=== PATIENT | female | born 1980 | race Caucasian/White ===

== ENCOUNTER 2020-02-03 14:38 | Outpatient (CLI) | payer OTHER, BC | END 2020-02-03 14:39 | disposition home or self-care (01) | LOC: DTY/OP 14:38 | PROVIDERS: ATTEND Surgery | DX: E66.01 Morbid (severe) obesity due to excess calories (principal) | CPT/HCPCS: 97802 ==

== ENCOUNTER 2020-03-02 12:52 | Outpatient (CLI) | payer OTHER, BC | END 2020-03-02 12:53 | disposition home or self-care (01) | LOC: DTY/OP 12:52 | PROVIDERS: ATTEND Surgery | DX: E66.01 Morbid (severe) obesity due to excess calories (principal) | CPT/HCPCS: 97802 ==

== ENCOUNTER 2020-03-30 13:35 | Outpatient (CLI) | payer OTHER, BC | END 2020-03-30 13:36 | disposition home or self-care (01) | LOC: DTY/OP 13:35 | PROVIDERS: ATTEND Surgery | DX: E66.01 Morbid (severe) obesity due to excess calories (principal) | CPT/HCPCS: 97802 ==

== ENCOUNTER 2020-05-02 15:15 | Inpatient (IN) | payer BC, OTHER ==
[2020-05-04 11:42] VITALS: BMI 34.6
[2020-05-07] MEDS ORDERED: Heparin 5,000 UNITS/ML VIAL ONE (10:01)
--- NOTE | 2020-05-07 10:11 | RAD ---
RADIOGRAPH CHEST 2 VIEWS: DATE: 05/07/2020 HISTORY: 39-year-old female for preoperative clearance FINDINGS: The lungs are clear. The cardiomediastinal silhouette and hilar shadows appear normal. There is no pl eural effusion or pneumothorax. No osseous abnormality is identified. IMPRESSION: Normal
[2020-05-07] MEDS ORDERED: Bupivacaine/Epinephrine 0.25% 30 ML VIAL ONE (11:02)
[2020-05-07] MEDS ORDERED: Fentanyl 100 MCG/2 ML VIAL ONE ×3 (11:17→14:39)
[2020-05-07] MEDS ORDERED: Midazolam HCl 2 mg/2 ml Vial ONE (11:17)
[2020-05-07] MEDS ORDERED: Rocuronium Bromide 10 MG/ML (10ML VIAL) ONE (11:25)
[2020-05-07] MEDS ORDERED: Esmolol 100 MG/10 ML VIAL ONE (11:25)
[2020-05-07] MEDS ORDERED: Lidocaine 1% PF 5 ML VIAL ONE (11:25)
[2020-05-07] MEDS ORDERED: EPHEDRINE 25 MG/5 ML SYRINGE ONE (11:25)
[2020-05-07] MEDS ORDERED: Ondansetron PF 4 MG/2 ML Vial ONE (11:25)
[2020-05-07] MEDS ORDERED: Dexamethasone 20 MG/5 ML VIAL ONE (11:25)
[2020-05-07] MEDS ORDERED: Glycopyrrolate 0.2 MG/ML 5 ML SYRINGE ONE (11:25)
[2020-05-07] MEDS ORDERED: PROPOFOL 200 MG/20 ML VIAL ONE (11:25)
[2020-05-07] MEDS ORDERED: Promethazine HCl 25 MG/ML VIAL IM PRN ×2 (12:47→13:25)
[2020-05-07] MEDS ORDERED: Ondansetron HCl/PF 4 MG/2 ML Vial IVP PRN (12:47)
[2020-05-07] MEDS ORDERED: Promethazine HCl 25 MG/ML VIAL SLOW IVP PRN (12:47)
[2020-05-07] MEDS ORDERED: SUGAMMADEX SODIUM 200 MG/2 ML VIAL ONE (13:18)
[2020-05-07] MEDS ORDERED: Dextrose 50% Abboject 50 ML SYRINGE SLOW IVP PRN (13:25)
[2020-05-07] MEDS ORDERED: Dextrose 5% in Water 1,000 ML IV PRN (13:25)
[2020-05-07] MEDS ORDERED: hydrALAZINE 20 MG/ML VIAL SLOW IVP PRN (13:25)
[2020-05-07] MEDS ORDERED: Cyclobenzaprine 10 MG TAB PO PRN (13:25)
[2020-05-07] MEDS ORDERED: Hydrocodone-Acetamin 15 ML UDCUP PO PRN ×2 (13:25→13:38)
[2020-05-07] MEDS ORDERED: Non-Formulary Item 1 EACH (Albuterol Sulfate [Albuterol Sulfate Hfa] 8.5 GM Hfa.Aer.Ad) IH PRN (13:25)
[2020-05-07] MEDS ORDERED: Ondansetron PF 4 MG/2 ML Vial IVP PRN (13:25)
[2020-05-07] MEDS ORDERED: diphenhydrAMINE 50 MG/ML VIAL IVP PRN (13:25)
[2020-05-07] MEDS ORDERED: Zolpidem Tartrate 5 MG TAB PO PRN ×2 (13:30→13:33)
[2020-05-07] MEDS ORDERED: Sodium Chloride 0.9% (PF) 10 ML VIAL FS PRN (13:30)
[2020-05-07] MEDS ORDERED: Naloxone HCl 0.4 mg/ml Vial IV PRN (13:33)
[2020-05-07] MEDS ORDERED: fentaNYL Citrate/PF 2,000 MCG in Sodium Chloride 0.9% 60 ML IV PRN (13:33)
[2020-05-07] MEDS ORDERED: diphenhydrAMINE 50 MG/ML VIAL IM PRN (13:33)
[2020-05-07] MEDS ORDERED: Communication Order-Pharmacy FS SCH (13:45)
--- NOTE | 2020-05-07 14:54 | OP ---
DATE OF PROCEDURE: 05/07/2020 PREOPERATIVE DIAGNOSES: 1. Morbid obesity, body mass index of 35. 2. Hypertension. 3. Dyslipidemia. POSTOPERATIVE DIAGNOSES: 1. Morbid obesity, body mass index of 35. 2. Hypertension. 3. Dyslipidemia. 4. Paraesophageal hiatal hernia. PROCEDURES PERFORMED: 1. Laparoscopic sleeve gastrectomy with Ethicon staple line reinforcements and 38-[place] bougie. 2. Laparoscopic paraesophageal hiatal hernia repair without fundoplication or mesh. ANESTHESIA: General. ESTIMATED BLOOD LOSS: Minimal. COMPLICATIONS: None. FINDINGS: Hiatal hernia. TECHNIQUE: The patient was taken to the operating room and laid supine on the operating table. After general anesthetic was obtained, bilateral arms and legs were double strapped to bariatric table. OG tube was used to decompress the stomach. Left subcostal 5-mm Optiview trocar placed in usual fashion and high-flow pneumoperitoneum was obtained. Left and right abdominal 12 mm ports as well as a right subcostal 5-mm port were placed under direct visualization. A 5-mm incision was made at the xiphoid, and Papo was used to raise the liver off the GE junction. Short gastrics were taken down from midbody of the stomach to the left ryan of diaphragm using LigaSure. Left ryan, posterior fundus, angle of His were completely dissected, revealing a hiatal hernia. Circumferential dissection of the esophagus was performed. The gastrohepatic ligament was opened allowing the dissection on the right side. OG tube was removed, and a 38 bougie was brought in its tip left in the antrum of the stomach. Multiple loads of [place] stapling device was used to form the sleeve all with Ethicon staple line reinforcements. The first was fired up at the distance of 6 cm proximal to the pylorus angled up towards the incisura. Multiple loads were then fired up along the bougie and the stomach was completely transected at the angle of His. The stomach was removed from the left abdominal incision. This fascial defect was closed using GraNee needle and 0 Vicryl tie. All port sites were infiltrated using local anesthetic. The posterior diaphragmatic defect was closed bringing the right and left crura together using Ethibond suture and the Ti-KNOT system, two sutures were used to do this. The bougie was removed, and an EGD scope was passed through the esophagus and stomach to the level of the duodenum without obstruction. There was no stricture at the incisura. There was no air leakage on the staple line. No involvement of the GE junction with the staple line. EGD scope was used to decompress the stomach, it was pulled and removed. The Papo liver retractor was removed under direct visualization without bleeding. There was no bleeding in the abdomen. All port sites were infiltrated using local anesthetic. All ports have removed under camera visualization. Pneumoperitoneum was let down. Vicryl was used to close the fascial defect from the left abdominal incision. All other incisions were irrigated. The incisions were all closed using 4-0 Monocryl and Dermabond. The patient was en route to Recovery in stable condition. All instrument counts, needle counts, and lap counts were correct. Job ID: [id number]
[2020-05-07] MEDS ORDERED: Promethazine HCl 25 MG/ML VIAL ONE (15:37)
[2020-05-07] MEDS: Gabapentin 300 MG CAP PO SCH ×2 (19:20→20:27)
[2020-05-07] MEDS: Enoxaparin Sodium 40 MG/0.4 ML SYRINGE SC SCH (20:28)
[2020-05-07] MEDS: Topiramate 25 MG TAB PO SCH (20:28)
[2020-05-07] MEDS: Ondansetron PF 4 MG/2 ML Vial IVP PRN (20:31)
[2020-05-07] MEDS: D5 1/2 NS w/20 mEq KCL 1,000 ML IV SCH (22:09)
[2020-05-07] MEDS: Promethazine HCl 25 MG/ML VIAL IM PRN (22:12)
[2020-05-08] MEDS: Promethazine HCl 25 MG/ML VIAL IM PRN ×2 (02:10→10:56)
[2020-05-08] MEDS: D5 1/2 NS w/20 mEq KCL 1,000 ML IV SCH ×4 (02:44→23:56)
[2020-05-08 05:03] LABS: #Lymphocytes 1.2 thou/uL (1.20-3.40); #Monocytes 0.8 thou/uL (0.11-0.59); #Neutrophils 8.3 thou/uL (1.40-6.50); %Basophils 0.4 % (0.0-1.0); %Eosinophils 0.1 % (0.0-10.0); %Lymphocytes 11.9 % (21.0-51.0); %Monocytes 7.4 % (0.0-10.0); %Neutrophils 80.3 % (42.0-75.0); Hemoglobin 12.6 g/dL (12.0-16.0); Mean Corpuscular HGB CONC 34.4 g/dL (32.0-36.0); Mean Corpuscular Hemoglobin 31.7 pg (27.0-31.0); Mean Corpuscular Volume 92.3 fL (78.0-98.0); Mean Platelet Volume 6.4 fL (7.4-10.4); Platelet Count 320 thou/uL (130-400); RBC Distribution Width 11.2 % (11.5-14.5); Red Blood Cell (RBC) Count 3.99 mill/uL (4.20-5.40); White Blood Cell (WBC) Count 10.4 thou/uL (4.8-10.8)
[2020-05-08 05:17] LABS: Anion Gap 12 mmol/L (10-20); BUN (Urea Nitrogen) 15 mg/dL (7.0-18.7); Calc. Creatinine Clearance 146 mL/min (70-130); Calcium 8.8 mg/dL (7.8-10.44); Carbon Dioxide 22 mmol/L (22-29); Chloride 107 mmol/L (98-107); Estimated GFR-MDRD 83; Glucose 148 mg/dL (70-105); Potassium 4.3 mmol/L (3.5-5.1); Sodium 137 mmol/L (136-145)
[2020-05-08] MEDS: Ondansetron PF 4 MG/2 ML Vial IVP PRN (06:24)
[2020-05-08] MEDS: Levothyroxine Sodium 112 MCG TAB PO SCH (06:28)
--- NOTE | 2020-05-08 07:00 | PDOC.GSPN ---
Surgery Progress Note: Subj - Subjective Narrative: Ms. Cruz is a 39-year-old female with past medical history of morbid obesity, hypertension, dyslipidemia, and a paraesophageal hiatal hernia is post op day 1 from a laparoscopic sleeve gastrectomy and paraesophageal hiatal hernia repair. Overall, she has some moderate to severe nausea and epigastric pain that radiates to her right upper quadrant. She denies reflux, vomiting, or having a bowel movement. When we talked, she only just recently had medication for nausea. We discussed the possibility of her going home, and she said she wanted to, but she wants to wait a little bit to see if her nausea is more under control. She does have some moderate pain, and she does not want the hydrocodone as she believes it made her nausea worse. Surgery Progress Note: Obj - Vital signs Vital signs: Vital Signs - Most Recent Temp Pulse Resp BP Pulse Ox 98.2 F 79 16 118/78 99 05/08/20 03:37 05/08/20 03:37 05/08/20 03:37 05/08/20 03:37 05/08/20 03:37 - Physical Exam General: moderate pain, obese Cardiovascular: regular rate and rhythm Respiratory: clear to auscultation Abdomen: soft, positive bowel sounds, appropriately tender Psychiatric: oriented to time, oriented to person, oriented to place Wound: healing well Surgery Progress Note: Results - Labs Result Diagrams: 05/08/20 04:41 05/08/20 04:41 Lab results: Laboratory Results - last 12 hr 05/08/20 05/08/20 04:41 04:41 WBC 10.4 RBC 3.99 L Hgb 12.6 Hct 36.8 MCV 92.3 MCH 31.7 H MCHC 34.4 RDW 11.2 L Plt Count 320 MPV 6.4 L Neutrophils % 80.3 H Lymphocytes % 11.9 L Monocytes % 7.4 Eosinophils % 0.1 Basophils % 0.4 Neutrophils # 8.3 H Lymphocytes # 1.2 Monocytes # 0.8 H Eosinophils # 0.0 Basophils # 0.0 Sodium 137 Potassium 4.3 Chloride 107 Carbon Dioxide 22 Anion Gap 12 BUN 15 Creatinine 0.77 Estimated GFR (MDRD) 83 Glucose 148 H Calcium 8.8 Surgery Progress Note: A/P - Problem (1) S/P laparoscopic sleeve gastrectomy Current Visit: Yes Code(s): Z98.84 - BARIATRIC SURGERY STATUS Status: Acute (2) Paraesophageal hiatal hernia Current Visit: Yes Code(s): K44.9 - DIAPHRAGMATIC HERNIA WITHOUT OBSTRUCTION OR GANGRENE Status: Acute (3) Morbid obesity Current Visit: Yes Code(s): E66.01 - MORBID (SEVERE) OBESITY DUE TO EXCESS CALORIES Status: Chronic - Plan Plan: We discussed waiting a couple of hours to see if the medication she was given adequately controls her nausea. If it does, she can go home. We also discussed giving a different medication for pain as she thinks the hydrocodone contributed to her nausea.
[2020-05-08] MEDS: Pantoprazole 40 MG VIAL IVP SCH (08:27)
[2020-05-08] MEDS: Gabapentin 300 MG CAP PO SCH ×3 (08:28→21:10)
[2020-05-08] MEDS: Topiramate 25 MG TAB PO SCH ×2 (08:28→21:08)
[2020-05-08] MEDS: diphenhydrAMINE 25 MG CAP PO PRN ×2 (08:28→13:12)
[2020-05-08] MEDS: Liothyronine Sodium 5 MCG TAB PO SCH (08:29)
--- NOTE | 2020-05-08 11:15 | PRG ---
DATE OF SERVICE: 05/08/2020 SUBJECTIVE: Postop day 1 gastric sleeve. Ms. Cruz is having some dry heaving at times. She has ambulated, but she is complaining of nausea. OBJECTIVE: VITAL SIGNS: She is afebrile. Vital signs are stable. ABDOMEN: Soft and appropriately tender. ASSESSMENT: Postoperative day 1 gastric sleeve. 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 The fentanyl could be contributing. We will hold off on hydrocodone, which causes nausea in her usually. We will try tramadol and oral Tylenol for the pain. Encouraged ambulation. Continue IV fluids. Continue liquids as tolerated. I suspect she will need to stay until tomorrow. Job ID: [id number]
[2020-05-08] MEDS: traMADol HCl 50 MG TAB PO PRN ×2 (11:32→21:10)
[2020-05-08] MEDS: diphenhydrAMINE 50 MG/ML VIAL IVP PRN (19:24)
[2020-05-08] MEDS: Enoxaparin Sodium 40 MG/0.4 ML SYRINGE SC SCH (22:11)
[2020-05-09] MEDS: Levothyroxine Sodium 112 MCG TAB PO SCH (05:53)
[2020-05-09] MEDS: diphenhydrAMINE 50 MG/ML VIAL IVP PRN (05:53)
[2020-05-09] MEDS: D5 1/2 NS w/20 mEq KCL 1,000 ML IV SCH (05:57)
[2020-05-09] MEDS: Liothyronine Sodium 5 MCG TAB PO SCH (09:32)
[2020-05-09] MEDS: Gabapentin 300 MG CAP PO SCH (09:33)
[2020-05-09] MEDS: diphenhydrAMINE 25 MG CAP PO PRN (09:33)
[2020-05-09] MEDS: Pantoprazole 40 MG VIAL IVP SCH (09:34)
[2020-05-09] MEDS: Topiramate 25 MG TAB PO SCH (09:39)
[2020-05-09 11:52] VITALS: BP 117/82; TEMP 98.6
--- NOTE | 2020-05-09 14:48 | DIS ---
DATE OF ADMISSION: 05/07/2020 DATE OF DISCHARGE: 05/09/2020 ADMIT DIAGNOSIS: Morbid obesity. DISCHARGE DIAGNOSIS: Morbid obesity. PROCEDURE: Laparoscopic sleeve gastrectomy by Dr. Nicole without complication. CONDITION ON DISCHARGE: Improved. STAFF: Dr. Nicole. HOSPITAL COURSE: On postop day 1, the patient had persistent nausea. Decision was made to keep her another night. On postop day 2, the patient was doing well. She had developed pretty severe diffuse urticaria. This already improved. No throat swelling, no difficulty breathing, and she is hemodynamically stable. She is discharged home. She will follow up with me in 2 weeks. Prescription had already sent to her pharmacy. Job ID: [id number]
== END 2020-05-09 12:45 | disposition home or self-care (01) | DRG 621 ==
LOC: SURG A 05-07 09:18 → EDSTATUS 05-07 13:52 → SURG A 05-07 19:22
PROVIDERS: ADMIT Surgery; ATTEND Surgery
PROC: 0DB64Z3 Excision of Stomach, Percutaneous Endoscopic Approach, Vertical (ICD-10-PCS; principal; 2020-05-07)
PROC: 0BQT4ZZ Repair Diaphragm, Percutaneous Endoscopic Approach (ICD-10-PCS; 2020-05-07)
DX: E66.01 Morbid (severe) obesity due to excess calories (principal); I10 Essential (primary) hypertension; M19.90 Unspecified osteoarthritis, unspecified site; F41.9 Anxiety disorder, unspecified; E11.9 Type 2 diabetes mellitus without complications; E78.5 Hyperlipidemia, unspecified; K44.9 Diaphragmatic hernia without obstruction or gangrene; Z68.35 Body mass index [BMI] 35.0-35.9, adult; Z88.2 Allergy status to sulfonamides; Z88.6 Allergy status to analgesic agent; Z88.8 Allergy status to other drugs, medicaments and biological substances; Z91.040 Latex allergy status; Z79.899 Other long term (current) drug therapy; Z90.710 Acquired absence of both cervix and uterus; Z98.890 Other specified postprocedural states
CPT/HCPCS: 36415; 71046; 80048; 85025; 88307; 88312; C9113; J0690; J1100; J1200; J1644; J1650; J2250; J2405; J2550; J2704; J3010; J3480; Q0163

== ENCOUNTER 2020-06-17 13:31 | Day surgery (SDC) | payer OTHER ==
[2020-06-17] MEDS ORDERED: Sodium Chloride 0.9% 1,000 ML IV SCH (15:00)
[2020-06-17] MEDS ORDERED: Ondansetron PF 4 MG/2 ML Vial IVP SCH (15:00)
== END 2020-06-17 17:06 | disposition home or self-care (01) ==
LOC: ONC/OP 13:31
PROVIDERS: ATTEND Surgery
DX: E86.0 Dehydration (principal); R11.0 Nausea; Z88.1 Allergy status to other antibiotic agents; Z88.2 Allergy status to sulfonamides; Z88.5 Allergy status to narcotic agent; Z91.040 Latex allergy status
CPT/HCPCS: 96365; 96375; J2405

== ENCOUNTER 2020-06-19 09:58 | Day surgery (SDC) | payer OTHER ==
[2020-06-19] MEDS ORDERED: Ondansetron PF 4 MG/2 ML Vial IVP PRN (10:06)
[2020-06-19] MEDS ORDERED: Sodium Chloride 0.9% 20 ML ONE (10:08)
[2020-06-19] MEDS ORDERED: Sodium Chloride 0.9% 1,000 ML IV SCH (12:00)
[2020-06-19] MEDS ORDERED: Multivitamins, Adult 10 ML, Thiamine HCl 100 MG in Sodium Chloride 0.9% 1,000 ML IV SCH (12:00)
[2020-06-19 12:27] VITALS: BP 120/73; TEMP 98.7
== END 2020-06-19 12:28 | disposition home or self-care (01) ==
LOC: ONC/OP 09:58
PROVIDERS: ATTEND Surgery
DX: E86.0 Dehydration (principal); R11.2 Nausea with vomiting, unspecified; Z88.1 Allergy status to other antibiotic agents; Z88.2 Allergy status to sulfonamides; Z88.5 Allergy status to narcotic agent; Z91.040 Latex allergy status
CPT/HCPCS: 96365; 96366; J3411; J7050

== ENCOUNTER 2020-07-04 16:39 | Emergency (ER) | payer OTHER | END 2020-07-04 17:53 | disposition left against medical advice (07) | LOC: ERS 16:39 | DX: Z53.21 Procedure and treatment not carried out due to patient leaving prior to being seen by health care provider (principal) ==